=== PATIENT | male | born 1995 | race Caucasian/White ===

== ENCOUNTER 2017-09-29 02:04 | Emergency (ER) | payer SELFPAY ==
[~2017-09-29] VITALS: Ht 175.3 cm; Wt 80.7 kg
[2017-09-29 02:06] VITALS: BP 135/101
--- NOTE | 2017-09-29 02:06 | NUR ---
PATIENT AMBULATED TO CHAIR E IN CUSTODY WITH [facility] OFFICER
[2017-09-29 02:07] VITALS: BP 135/101
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
== END 2017-09-29 02:27 | disposition home or self-care (01) ==
LOC: MED 02:04
DX: Z02.89 Encounter for other administrative examinations (principal); R03.0 Elevated blood-pressure reading, without diagnosis of hypertension; V43.92XA Unspecified car occupant injured in collision with other type car in traffic accident, initial encounter; Y93.89 Activity, other specified; Y92.89 Other specified places as the place of occurrence of the external cause; Y99.8 Other external cause status
CPT/HCPCS: 99283